=== PATIENT | female | born 1995 | race Caucasian/White ===

== ENCOUNTER 2018-08-09 21:32 | Outpatient (CLI) | payer SELFPAY ==
[2018-08-09 21:58] VITALS: BP 112/74
[2018-08-09] MEDS ORDERED: LACTATED RINGERS 500 ML IV ONE (22:22)
[2018-08-09] MEDS ORDERED: LACTATED RINGERS 1,000 ML ONE (22:44)
[2018-08-09 23:41] LABS: Bilirubin,Urine NEG (Negative); Blood,Urine NEG (Negative); Color,Urine Yellow (Yellow); Protein,Urine <15 mg/dL mg/dL (Negative); Urobilinogen,Urine < 2.0 mg/dL (<2.0)
== END 2018-08-10 | disposition home or self-care (01) ==
LOC: TRG 21:32
PROVIDERS: ATTEND Obstetrics & Gynecology
DX: O26.892 Other specified pregnancy related conditions, second trimester (principal); R52 Pain, unspecified; O47.03 False labor before 37 completed weeks of gestation, third trimester; Z3A.29 29 weeks gestation of pregnancy
CPT/HCPCS: 59025; 81001; J7120

== ENCOUNTER 2018-10-25 07:37 | Inpatient (IN) | payer SELFPAY ==
[2018-10-25] MEDS ORDERED: REGLAN IV ONE (08:03)
[2018-10-25] MEDS ORDERED: PEPCID IV ONE (08:03)
[2018-10-25] MEDS ORDERED: BICITRA PO ONE (08:03)
--- NOTE | 2018-10-25 08:10 | History and Physical Report ---
History of Present Illness Date of examination: 10/25/18 Chief complaint: SROM @ 0720 and labor, no care History of present illness: no care in this Pt denies medical problems reports only surgery was c/s in 2014 OB hx 2013 - 10lbs 2015 - c/s 6# for "infection" 2017 - 8#5oz Pt reports LMP 01/18/18 making EDC 10/25/18 Past History Past Medical History: no pertinent history Past Surgical History: section (x1) Family/Genetic History: none Social history: no significant social history - Obstetrical History Expected Date of Delivery: 10/25/18 Actual Gestation: 40 Week(s) 0 Day(s) : 4 Para: 3 Hx # Term Pregnancies: 3 Number of Pregnancies: 0 Spontaneous Abortions: 0 Induced : 0 Number of Living Children: 3 Medications and Allergies Allergies Allergy/AdvReac Type Severity Reaction Status Date / Time No Known Allergies Allergy Unverified 08/09/18 22:21 Review of Systems All systems: negative - Physical Exam Breasts: Positive: normal Cardiovascular: Regular rate Lungs: Positive: Clear to auscultation, Normal air movement Abdomen: Positive: normal appearance, soft Genitourinary (Female): Positive: normal external genitalia, normal perenium Vulva: both: normal Vagina: Positive: normal moisture Uterus: Positive: normal size, normal contour Adnexa: both: normal Anus/Rectum: Positive: normal perianal skin Extremities: Positive: normal Deep Tendon Reflex Grade: Normal +2 - Obstetrical FHR: category 1 Uterine Contraction Monitor Mode: External Cervical Dilatation: 5.5 Uterine Contraction Pattern: Regular Uterine Tone Measurement Phase: Contraction Uterine Contraction Intensity: Moderate Results All other labs normal. Assessment and Plan 23y/o @ 40 weeks by EDC established by LMP (LMP 01/18/18) admitted in active labor. Pt hx of prev c/s and 1 successful . she has not had any care. plan for repeat c/s. dr. Clay meléndez. pre-op orders in EMR - Patient Problems (1) 40 weeks gestation of Current Visit: Yes Status: Acute (2) Previous section Current Visit: Yes Status: Acute Plan to address problem: preop orders for repeat c/s (3) No care in current Current Visit: Yes Status: Acute Qualifiers: Trimester: third trimester Qualified Code(s): O09.33 - Supervision of with insufficient care, third trimester
--- NOTE | 2018-10-25 08:40 | Anesthesia Consultation ---
Anesthesia Consult and Med Hx Date of service: 10/25/18 - Airway Anesthetic Teeth Evaluation: Good ROM Head & Neck: Adequate Mental/Hyoid Distance: Adequate Mallampati Class: Class II Intubation Access Assessment: Probably Good - Pulmonary Exam CTA: Yes - Cardiac Exam Cardiac Exam: RRR - Pre-Operative Health Status ASA Pre-Surgery Classification: ASA2 Proposed Anesthetic Plan: Epidural - Pulmonary Hx Smoking: No Hx Asthma: No Hx Respiratory Symptoms: No SOB: No COPD: No Home Oxygen Therapy: No Hx Pneumonia: No Hx Sleep Apnea: No - Cardiovascular System Hx Hypertension: No Hx Coronary Artery Disease: No Hx Heart Attack/AMI: No Hx Angina: No Hx Percutaneous Transluminal Coronary Angioplasty (PTCA): No Hx Cardia Arrhythmia: No Hx Pacemaker: No Hx Internal Defibrillator: No Hx Valvular Heart Disease: No Hx Heart Murmur: No Hx Peripheral Vascular Disease: No - Central Nervous System Hx Neuromuscular Disorder: No Hx Seizures: No CVA: No Hx Back Pain: No Hx Psychiatric Problems: No - Gastrointestinal Hx Ulcer: No Hx Gastroesophageal Reflux Disease: Yes - Endocrine Hx Renal Disease: No Hx End Stage Renal Disease: No Hx Cirrhosis: No Hx Liver Disease: No Hx Insulin Dependent Diabetes: No Hx Non-Insulin Dependent Diabetes: No Hx Thyroid Disease: No Hx Hypothyroidism: No Hx Hyperthyroidism: No - Hematic Hx Anemia: No Hx Sickle Cell Disease: No - Other Systems Hx Alcohol Use: No Hx Substance Use: No Hx Cancer: No Hx Obesity: No
--- NOTE | 2018-10-25 08:41 | Anesthesia Day of Surgery ---
Anesthesia Day of Surgery - Day of Surgery Patient Examined: Yes Patient H&P Reviewed: Yes Patient is NPO: Yes Beta Blockers: No Cardiac Clearance: No Pulmonary Clearance: No Donny's Test: N/A
--- NOTE | 2018-10-25 08:46 | Event Note ---
Date: 10/25/18 Providers advised that scheduled c/s would proceed this . Will closely monitor, treat for unknown GBS and await time in OR.
[2018-10-25 08:55] LABS: Basophils # (Auto) 0.1 K/mm3 (0.0-0.1); Basophils % (Auto) 0.6 % (0.0-1.8); Eosinophils # (Auto) 0.2 K/mm3 (0.0-0.4); Eosinophils % (Auto) 1.9 % (0.0-4.3); Hematocrit 35.2 % (30.3-42.9); Lymphocytes # (Auto) 3.1 K/mm3 (1.2-5.4); Lymphocytes % (Auto) 24.8 % (13.4-35.0); Mean Corpuscular HGB Conc 34 % (30-34); Mean Corpuscular Volume 84 fl (79-97); Monocytes # (Auto) 0.9 K/mm3 (0.0-0.8); Monocytes % (Auto) 7.2 % (0.0-7.3); Platelet Count 230 K/mm3 (140-440); Red Blood Count 4.21 M/mm3 (3.65-5.03); Red Cell Distribution Width 15.2 % (13.2-15.2)
[2018-10-25] MEDS: LACTATED RINGERS 1,000 ML IV SCH ×2 (08:59→09:16)
[2018-10-25] MEDS ORDERED: ANCEF/STERILE WATER 2 GM/20 ML 2 GM/20 ML SYRINGE IV NR (09:00)
[2018-10-25] MEDS ORDERED: SUBLIMAZE IV ONE (09:00)
[2018-10-25] MEDS ORDERED: PITOCin/NS 20 UNIT/1000ML DRIP 20 UNITS/1,000 ML BAG IV SCH (09:00)
[2018-10-25] MEDS ORDERED: SUBLIMAZE ONE (09:08)
[2018-10-25] MEDS ORDERED: AMPICILLIN/NS 2 GM/100 ML 2 GM/100 ML BAG IV ONE (09:30)
[2018-10-25 09:40] LABS: Hepatitis C Virus Antibody Non-Reactive (NonReactive)
[2018-10-25] MEDS ORDERED: PHENERGAN PO PRN (10:05)
[2018-10-25] MEDS ORDERED: BENADRYL IV PRN (10:05)
[2018-10-25] MEDS ORDERED: ZOFRAN IV PRN (10:05)
[2018-10-25] MEDS ORDERED: DILAUDID IV PRN ×2 (10:05)
[2018-10-25] MEDS ORDERED: PHENERGAN PR PRN (10:05)
[2018-10-25] MEDS ORDERED: ANCEF/STERILE WATER 2 GM/20 ML IV ONE (10:30)
[2018-10-25] MEDS ORDERED: WATER FOR IRRIG STERILE IR ONE (10:30)
[2018-10-25] MEDS ORDERED: NACL 0.9% IR ONE (10:30)
[2018-10-25] MEDS ORDERED: SODIUM CHLORIDE FLUSH SYRINGE 10 ML IV NR ×2 (11:00→12:00)
[2018-10-25] MEDS ORDERED: ZOFRAN ONE (11:06)
--- NOTE | 2018-10-25 11:35 | Operative Report ---
Operative Report Operative Report: Date of procedure: 10/25/2018 Pre-operative diagnosis: 40 weeks gestation No care Previous section 1 Post-operative diagnosis: Same Procedure name(s): Repeat low transverse section via Pfannenstiel skin incision Surgeon: Dr. Williamson Assistant Mechanic: OSVALDO Anesthesia: Epidural/spinal EBL: 700 mL Urine output: 300 mL of clear urine out at the end of the procedure Fluids: 650 mL Findings: Liveborn female at 7 lbs. 0 oz. Apgars of 8 and 9 at one and 5 minutes Grossly normal fallopian tubes and ovaries bilaterally Well-developed lower uterine segment Indications: Patient presents to triage in active labor and spontaneous rupture of membranes. Clear fluid was noted on exam. Patient admitted to no care with this . Patient had a history of previous section. Patient was consented for repeat section. All risks benefits and alternatives were discussed with the patient via her deburrer that was present at the bedside. Patient expressed understanding. Consents were signed and placed on the chart. Procedure: Patient was taking to the operating room. Patient was then prepped and draped in sterile fashion after anesthesia was found to be adequate. A low transverse skin incision was made with the scalpel through previous incisional scar and carried down to the underlying layer of fascia with the Bovie. The fascia was then incised in the midline and this incision was extended bilaterally with the Bovie. The superior aspect of the fascia was grasped with Marcie clamps tented upward and dissected off of the anterior rectus muscles with the scalpel. In similar fashion the inferior aspect of the fascia was grasped with Marcie clamps tented upward and dissected off of the anterior rectus muscles. The rectus muscles were then bluntly divided in the midline. The peritoneum was identified and entered into sharply. The bladder blade was placed. The bladder flap was created using the Metzenbaum scissors. The bladder blade was replaced. The Ronald retractor was placed. A lower transverse uterine incision was made with the scalpel and extended bilaterally with blunt dissection. Entry into the uterus yielded clear amniotic fluid. The infant's head was then delivered atraumatically in direct OP presentation. The anterior shoulder and rest of delivered without difficulty. The umbilical cord was clamped x2. The cord was cut. The infant was then placed in sterile bassinet. The cord blood was collected. The placenta was manually extracted in its entirety. The uterus was exteriorized and cleared of all clots and debris. The uterine incision was closed using 0 Vicryl in a running locking fashion. Tisseel was placed along the uterine incision with excellent hemostasis noted. The posterior cul-de-sac was copiously irrigated. The uterus was returned to the abdomen. The gutters were also irrigated. The anterior rectus muscles were reapproximated using 3-0 Vicryl. The anterior rectus fascia was reapproximated using 0 Vicryl in a running fashion. The subcuticular fat was reapproximated using 2-0 Vicryl in a running fashion. The skin was reapproximated with 4-0 Monocryl in a subcuticular stitch. The patient tolerated the procedure well. Sponge lap and needle counts were all correct x3. Patient was taken to the recovery room awake and in stable condition.
--- NOTE | 2018-10-25 11:42 | Post Anesthesia Evaluation ---
- Post Anesthesia Evaluation Patient Participated: Yes Airway Patent: Yes Stable Respiratory Function: Yes Nausea/Vomiting: No Temp > 96.8F: Yes Pain Manageable: Yes Adequeate Hydration: Yes Anesthesia Complications: No Block Receding Appropriately: Yes
[2018-10-25] MEDS ORDERED: LANSINOH TP PRN (11:59)
[2018-10-25] MEDS ORDERED: MYLICON PO PRN (11:59)
[2018-10-25] MEDS ORDERED: NARCAN 0.4 MG/1 ML IV PRN (11:59)
[2018-10-25] MEDS ORDERED: TUCKS PAD TP PRN (11:59)
[2018-10-25] MEDS ORDERED: D5LR 1,000 ML IV SCH (12:00)
[2018-10-25] MEDS ORDERED: LACTATED RINGERS 1,000 ML IV ONE (12:05)
[2018-10-25] MEDS: TORADOL IV PRN ×2 (15:33→19:30)
[2018-10-25 17:28] LABS: Amphetamine Screen,Urine PRESUMPTIVE NEGATIVE; Benzodiazepines Screen,Urine PRESUMPTIVE NEGATIVE; Cannabinoid Screen,Urine PRESUMPTIVE NEGATIVE; Cocaine Screen,Urine PRESUMPTIVE NEGATIVE; Methadone Screen,Urine PRESUMPTIVE NEGATIVE; Opiate Screen,Urine PRESUMPTIVE NEGATIVE
[2018-10-25] MEDS: ANCEF/NS 1 GM/50 ML 1 GM/50 ML BAG IV SCH (20:34)
[2018-10-26 00:27] LABS: Hemoglobin 9.2 gm/dl (10.1-14.3)
[2018-10-26] MEDS: TORADOL IV PRN (01:06)
[2018-10-26] MEDS: ANCEF/NS 1 GM/50 ML 1 GM/50 ML BAG IV SCH (03:52)
[2018-10-26] MEDS: FEOSOL PO SCH (09:13)
[2018-10-26] MEDS: PRENATAL VITAMIN PO SCH (09:13)
[2018-10-26] MEDS: NORCO 5/325 PO PRN ×2 (09:13→17:04)
[2018-10-26] MEDS: IBUPROFEN PO PRN ×3 (09:14→23:39)
--- NOTE | 2018-10-26 09:35 | Progress Note ---
Assessment and Plan Continue Post C/S pathway, possibly allow home tomorrow Questions encouraged and answered. - Patient Problems (1) delivery delivered Current Visit: Yes Status: Acute (2) No care in current Current Visit: Yes Status: Acute Qualifiers: Trimester: third trimester Qualified Code(s): O09.33 - Supervision of with insufficient care, third trimester (3) Previous section Current Visit: Yes Status: Acute Subjective - Subjective Date of service: 10/26/18 Principal diagnosis: POD#1 s/p C/S, PNC Interval history: Resting in bed. No complaints, minimal bleeding Patient reports: appetite normal, voiding normally, pain well controlled, flatus, ambulating normally Objective - Vital Signs Latest vital signs: Vital Signs Temp Pulse Resp BP BP Pulse Ox 10/26/18 04:33 98.2 F 79 20 105/68 96 10/26/18 01:26 98.7 F 90 20 110/69 97 10/25/18 21:26 98.2 F 85 22 112/72 97 10/25/18 15:54 97.2 F L 76 20 101/64 10/25/18 12:35 97.8 F 82 18 96/57 98 10/25/18 12:20 80 16 102/54 98 10/25/18 12:10 80 16 91/51 98 10/25/18 12:00 79 16 89/45 98 10/25/18 11:53 79 16 84/45 98 10/25/18 11:48 85 16 87/42 98 10/25/18 11:40 82 18 94/61 98 10/25/18 10:37 97.7 F 94 H 18 91/49 98 10/25/18 10:05 89 110/68 Intake and Output 10/25/18 10/26/18 10/26/18 22:59 06:59 14:59 Intake Total 410 650 400 Output Total 600 1150 Balance -190 -500 400 Intake: IV 50 ANCEF/NS 1 GM/50 ML 1 gm 50 In 50 ml @ 100 mls/hr IV Q8H [facility] Rx#:[id number] Oral 360 650 300 Intake, Free Water 100 Output: Urine 600 1150 Indwelling Catheter 600 500 Void 650 Other: Total, Intake Amount 120 250 300 Total, Output Amount 600 200 # Voids Void 1 - Exam Breasts: Present: normal Cardiovascular: Present: Regular rate Lungs: Present: Clear to auscultation, Normal air movement Abdomen: Present: normal appearance, soft, normal bowel sounds Uterus: Present: fundal height below umbilicus Extremities: Present: normal. Absent: tenderness, edema Incision: Present: dressed - Labs Labs: Abnormal lab results 10/26/18 Range/Units 00:12 Hgb 9.2 L (10.1-14.3) gm/dl Hct 27.0 L D (30.3-42.9) %
[2018-10-26] MEDS ORDERED: BOOSTRIX IM ONE (12:00)
[2018-10-27] MEDS: IBUPROFEN PO PRN ×4 (05:48→23:54)
[2018-10-27] MEDS ORDERED: BOOSTRIX IM ONE (06:00)
[2018-10-27] MEDS: PRENATAL VITAMIN PO SCH (09:13)
[2018-10-27] MEDS: FEOSOL PO SCH (09:13)
--- NOTE | 2018-10-27 10:11 | Progress Note ---
Assessment and Plan Continue Post C/S pathway,desires discharge home tomorrow Questions encouraged and answered. - Patient Problems (1) delivery delivered Current Visit: Yes Status: Acute (2) No care in current Current Visit: Yes Status: Acute Qualifiers: Trimester: third trimester Qualified Code(s): O09.33 - Supervision of with insufficient care, third trimester (3) Previous section Current Visit: Yes Status: Acute Subjective - Subjective Date of service: 10/27/18 Principal diagnosis: POD#2 s/p C/S, NPC Interval history: Resting in bed. No complaints, minimal bleeding. Patient reports: appetite normal, voiding normally, pain well controlled, flatus Objective - Vital Signs Latest vital signs: Vital Signs Temp Pulse Resp BP BP Pulse Ox 10/27/18 08:20 98.4 F 74 20 94/55 10/27/18 00:56 98.3 F 74 18 93/55 99 10/26/18 17:08 97.9 F 72 18 102/57 Intake and Output 10/26/18 10/27/18 10/27/18 22:59 06:59 14:59 Intake Total 780 550 Balance 780 550 Intake: Oral 780 550 Other: Total, Intake Amount 300 300 # Voids Void 1 1 - Exam Breasts: Present: normal Lungs: Present: Normal air movement Abdomen: Present: normal appearance, soft. Absent: distention, tenderness Uterus: Present: firm, fundal height below umbilicus. Absent: tenderness Extremities: Present: normal. Absent: tenderness, edema Incision: Present: normal, dry, intact
[2018-10-27] MEDS: NORCO 5/325 PO PRN ×2 (11:37→16:20)
[2018-10-28] MEDS: IBUPROFEN PO PRN (06:07)
--- NOTE | 2018-10-28 06:30 | Discharge Summary ---
Providers - Providers Date of Admission: 10/25/18 09:55 Date of discharge: 10/28/18 (agrees with d/c) Attending physician: SARAI FULTON 10/25/18 12:02 Consult to Case Management [CONS] Routine Services Needed at Discharge: Bell Clerk Notified:: [id number] Comment:: no care this Primary care physician: SARAI FULTON Hospitalization Reason for admission: active labor, IUP at term, other (no care) Delivery: Procedure: repeat low transverse Episiotomy: none Laceration: none Incision: normal, dry, intact Other procedures: none complications: none Discharge diagnosis: IUP at term delivered [place] baby: female Hospital course: no care uncomplicated repeat section Pt w/o complaint VSS FF below umb Lochia scant Incision D&I Stable H&H Doing well s/p R C/S P: d/c today with instructions RTO 1 week postop care Condition at discharge: Good Disposition: DC-01 TO HOME OR SELFCARE - Discharge Diagnoses (1) delivery delivered Status: Acute Comment: RTO 1 week Postop care Plan - Discharge Medications Prescriptions: Ibuprofen [Motrin 800 MG tab] 800 mg PO Q8HR PRN #30 tablet PRN Reason: Pain, Moderate (4-6) oxyCODONE /ACETAMINOPHEN [Percocet 5/325] 1 tab PO Q4HR #30 tab - Provider Discharge Summary Activity: routine, no sex for 6 weeks, no heavy lifting 4 weeks, no strenuous exercise Diet: routine Instructions: routine Additional instructions: [] Smoking cessation referral if applicable(refer to patient education folder for contact #) [] Refer to [facility] Booklet Call your doctor immediately for: * Fever > 100.5 * Heavy vaginal bleeding ( >1 pad per hour) * Severe persistent headache * Shortness of breath * Reddened, hot, painful area to leg or breast * Drainage or odor from incision. * Keep incision clean and dry at all times and follow doctor's instructions regarding bathing/showering - Follow up plan Follow up: SARAI FULTON MD [Primary Care Provider] - 7 Days (Congratulations! please call [phone] to schedule your postoperative exam. Take medications as prescribed. Call with concerns. [facility] [address] [facility] [address]) Forms: [facility] Discharge Summary
[2018-10-28] MEDS: PRENATAL VITAMIN PO SCH (09:14)
[2018-10-28] MEDS: FEOSOL PO SCH (09:14)
[2018-10-28] MEDS: NORCO 5/325 PO PRN (09:15)
[2018-10-28 17:03] VITALS: BP 112/80
== END 2018-10-28 17:15 | disposition home or self-care (01) | DRG 788 ==
LOC: TRG 07:37 → APU 09:55 → OB 12:57
PROVIDERS: ADMIT Obstetrics & Gynecology; ATTEND Obstetrics & Gynecology
PROC: 10D00Z1 Extraction of Products of Conception, Low, Open Approach (ICD-10-PCS; principal; 2018-10-25)
DX: O34.211 Maternal care for low transverse scar from previous cesarean delivery (principal); O99.62 Diseases of the digestive system complicating childbirth; K21.9 Gastro-esophageal reflux disease without esophagitis; Z37.0 Single live birth; Z3A.40 40 weeks gestation of pregnancy
CPT/HCPCS: 36415; 80307; 85014; 85018; 85025; 85660; 86592; 86706; 86762; 86803; 86850; 86900; 86901; 87806; 90715; G0378; A6250; C9250; J0290; J0690; J1885; J2405; J2590; J2765; J3010; J7120